=== PATIENT | female | born 2000 | race Caucasian/White ===

== ENCOUNTER 2021-03-30 15:25 | Emergency (ER) | payer OTHER ==
[~2021-03-30 15:25] MED LIST: LEVETIRACETAM500 MG PO; PHENERGAN25 M1 PO; ZANTAC150 MG PO; ZONEGRAN100 MG PO
[2021-03-30 16:16] LABS: BASOPHIL 0.2 % (0-2); EOSINOPHIL 0.2 % (0-5); LYMPHOCYTE 13.2 % (15-48); MCH 29.8 pg (25.0-31.0); MCHC 34.2 g/dL (32.0-36.0); MCV 87.2 fL (78.0-100.0); MONOCYTE 5.6 % (0-12); MPV 9.3 fL (6.0-9.5); NEUTROPHIL 80.4 % (41-80); NRBC 0; PLT 261 K/uL (150-400); RBC 4.36 M/uL (4.20-5.40); RDW 12.6 % (11.5-14.0); WBC 14.6 K/uL (4.0-10.5)
[2021-03-30 16:37] LABS: BUN/CREAT RATIO (CALC) 8.9 RATIO; CREATININE 0.56 mg/dL (0.51-0.95); POTASSIUM 3.5 mmol/L (3.5-5.1)
[2021-03-30 17:30] LABS: BILIRUBIN NEGATIVE (NEGATIVE); BLOOD NEGATIVE Ery/uL (NEGATIVE); CLARITY CLEAR (CLEAR); COLOR YELLOW (YELLOW); GLUCOSE (U) NORMAL (NORMAL); LEUKOCYTES 1+ Leu/uL (NEGATIVE); NITRITE NEGATIVE (NEGATIVE); PROTEIN 1+ mg/dL (NEGATIVE); SPECIFIC GRAVITY 1.015 (1.001-1.030); UROBILINOGEN 0.2 mg/dL (0.2-1.0); pH 8.5 (5.0-9.0)
[2021-03-30 17:35] LABS: AMPHETAMINES POSITIVE (NEGATIVE); BARBITURATES NEGATIVE (NEGATIVE); ECSTASY (MDMA) NEGATIVE (NEGATIVE); MARIJUANA (THC) NEGATIVE (NEGATIVE); METHADONE NEGATIVE (NEGATIVE); OPIATES NEGATIVE (NEGATIVE)
[2021-03-30 17:36] LABS: OXYCODONE NEGATIVE (NEGATIVE)
[2021-03-30 18:13] LABS: BACTERIA TRACE
[2021-03-30] MEDS ORDERED: LEVETIRACETAM500 MG PO (18:15)
== END 2021-03-30 18:35 | disposition home or self-care (01) ==
LOC: FER 15:25
PROVIDERS: Nurse Practitioner Family
DX: G40.409 Other generalized epilepsy and epileptic syndromes, not intractable, without status epilepticus (principal); Z79.899 Other long term (current) drug therapy
CPT/HCPCS: 36415; 80048; 80305; 81001; 85025; 93005; J1953

== ENCOUNTER 2021-04-04 06:54 | Emergency (ER) | payer OTHER ==
[2021-04-04] MEDS ORDERED: KEFLEX250 MG PO (08:04)
[2021-04-04] MEDS ORDERED: BACTROBAN NASAL1 GM TOP (08:04)
== END 2021-04-04 08:14 | disposition home or self-care (01) ==
LOC: FER 06:54
DX: S61.412A Laceration without foreign body of left hand, initial encounter (principal); S61.512A Laceration without foreign body of left wrist, initial encounter; L03.114 Cellulitis of left upper limb; F17.210 Nicotine dependence, cigarettes, uncomplicated; W17.89XA Other fall from one level to another, initial encounter; Y92.009 Unspecified place in unspecified non-institutional (private) residence as the place of occurrence of the external cause; Z88.8 Allergy status to other drugs, medicaments and biological substances

== ENCOUNTER 2021-04-10 23:06 | Emergency (ER) | payer OTHER ==
[~2021-04-10 23:06] MED LIST changes: +BACTROBAN NASAL1 GM TOP; +KEFLEX250 MG PO
[2021-04-11 00:43] LABS: BASOPHIL 0.2 % (0-2); EOSINOPHIL 0.4 % (0-5); HCT 40.9 % (37.0-47.0); HGB 13.2 g/dl (12.5-16.0); LYMPHOCYTE 11.8 % (15-48); MCH 29.2 pg (25.0-31.0); MCHC 32.3 g/dL (32.0-36.0); MCV 90.5 fL (78.0-100.0); MONOCYTE 9.1 % (0-12); MPV 9.7 fL (6.0-9.5); NRBC 0; RBC 4.52 M/uL (4.20-5.40); WBC 12.9 K/uL (4.0-10.5)
[2021-04-11 01:04] LABS: LACTIC ACID 0.9 mmol/L (0.4-1.9)
[2021-04-11 01:06] LABS: PLT 172 K/uL (150-400)
[2021-04-11 01:14] LABS: ALBUMIN 3.6 g/dL (3.4-5.0); BILIRUBIN - TOTAL 0.4 mg/dL (0.2-1.0); BUN/CREAT RATIO (CALC) 16.9 RATIO; CREATININE 0.59 mg/dL (0.51-0.95); GLOBULIN (CALCULATION) 4.4 g/dL; POTASSIUM 3.5 mmol/L (3.5-5.1)
[2021-04-11 02:13] LABS: BILIRUBIN 1+ mg/dL (NEGATIVE); BLOOD 3+ Ery/uL (NEGATIVE); CLARITY CLOUDY (CLEAR); COLOR YELLOW (YELLOW); GLUCOSE (U) NORMAL (NORMAL); LEUKOCYTES TRACE Leu/uL (NEGATIVE); NITRITE NEGATIVE (NEGATIVE); PROTEIN 2+ mg/dL (NEGATIVE); SPECIFIC GRAVITY >=1.030 (1.001-1.030); pH 5.5 (5.0-9.0)
[2021-04-11 02:18] LABS: AMPHETAMINES POSITIVE (NEGATIVE); BARBITURATES NEGATIVE (NEGATIVE); ECSTASY (MDMA) POSITIVE (NEGATIVE); MARIJUANA (THC) NEGATIVE (NEGATIVE); METHADONE NEGATIVE (NEGATIVE); OPIATES NEGATIVE (NEGATIVE); OXYCODONE NEGATIVE (NEGATIVE)
[2021-04-11 02:21] LABS: AMORPHOUS URATES CRYSTALS MODERATE; BACTERIA 1+; HCG (URINE) SCREEN NEGATIVE (NEGATIVE); URINARY RBC RARE
== END 2021-04-11 08:39 | disposition home or self-care (01) ==
LOC: FER 23:06
PROVIDERS: Internal Medicine
DX: R56.9 Unspecified convulsions (principal); F19.10 Other psychoactive substance abuse, uncomplicated; F17.200 Nicotine dependence, unspecified, uncomplicated
CPT/HCPCS: 36415; 80053; 80305; 81001; 83605; 83690; 84703; 85025; 93005; J7030

== ENCOUNTER 2021-09-01 19:54 | Inpatient (IN) | payer OTHER ==
[~2021-09-01] VITALS: Ht 167.6 cm; Wt 106.6 kg
[2021-09-01 21:38] LABS: BASOPHIL 0.2 % (0-2); EOSINOPHIL 0.5 % (0-5); HCT 39.3 % (37.0-47.0); HGB 13.1 g/dl (12.5-16.0); LYMPHOCYTE 10.4 % (15-48); MCH 29.6 pg (25.0-31.0); MCHC 33.3 g/dL (32.0-36.0); MCV 88.9 fL (78.0-100.0); MONOCYTE 9.8 % (0-12); NEUTROPHIL 78.7 % (41-80); NRBC 0; PLT 299 K/uL (150-400); RBC 4.42 M/uL (4.20-5.40); RDW 12.7 % (11.5-14.0); WBC 21.3 K/uL (4.0-10.5)
[2021-09-01 22:02] LABS: LACTIC ACID 0.9 mmol/L (0.4-1.9)
[2021-09-01 22:04] LABS: ALBUMIN 3.5 g/dL (3.4-5.0); BILIRUBIN - TOTAL 0.3 mg/dL (0.2-1.0); BUN/CREAT RATIO (CALC) 18.8 RATIO; CREATININE 0.64 mg/dL (0.51-0.95); GLOBULIN (CALCULATION) 4.2 g/dL; POTASSIUM 3.9 mmol/L (3.5-5.1); TOTAL PROTEIN 7.7 g/dL (6.4-8.2)
[2021-09-01 23:06] LABS: BILIRUBIN NEGATIVE (NEGATIVE); BLOOD 3+ Ery/uL (NEGATIVE); CLARITY CLOUDY (CLEAR); COLOR BROWN (YELLOW); GLUCOSE (U) NORMAL (NORMAL); LEUKOCYTES 2+ Leu/uL (NEGATIVE); NITRITE POSITIVE (NEGATIVE); PROTEIN 2+ mg/dL (NEGATIVE); SPECIFIC GRAVITY 1.025 (1.001-1.030)
[2021-09-01 23:24] LABS: BACTERIA 3+; URINARY RBC TNTC; URINARY WBC TNTC
[2021-09-02 07:25] LABS: BASOPHIL 0.1 % (0-2); EOSINOPHIL 0.2 % (0-5); HCT 35.7 % (37.0-47.0); LYMPHOCYTE 8.8 % (15-48); MCH 30.2 pg (25.0-31.0); MCHC 33.6 g/dL (32.0-36.0); MCV 89.7 fL (78.0-100.0); MONOCYTE 12.1 % (0-12); MPV 9.3 fL (6.0-9.5); NEUTROPHIL 78.4 % (41-80); NRBC 0; PLT 236 K/uL (150-400); RBC 3.98 M/uL (4.20-5.40); RDW 12.9 % (11.5-14.0); WBC 20.3 K/uL (4.0-10.5)
[2021-09-02 07:55] LABS: BUN/CREAT RATIO (CALC) 14.5 RATIO; CREATININE 0.62 mg/dL (0.51-0.95); POTASSIUM 3.5 mmol/L (3.5-5.1)
[2021-09-03 06:48] LABS: BASOPHIL 0.2 % (0-2); EOSINOPHIL 1.5 % (0-5); HCT 36.2 % (37.0-47.0); HGB 11.9 g/dl (12.5-16.0); LYMPHOCYTE 23.4 % (15-48); MCH 29.8 pg (25.0-31.0); MCHC 32.9 g/dL (32.0-36.0); MCV 90.7 fL (78.0-100.0); MONOCYTE 10.5 % (0-12); MPV 9.3 fL (6.0-9.5); NEUTROPHIL 63.9 % (41-80); NRBC 0; PLT 253 K/uL (150-400); RBC 3.99 M/uL (4.20-5.40); RDW 12.8 % (11.5-14.0); WBC 12.8 K/uL (4.0-10.5)
[2021-09-03 07:25] LABS: BUN/CREAT RATIO (CALC) 10.3 RATIO; CREATININE 0.58 mg/dL (0.51-0.95); POTASSIUM 4.3 mmol/L (3.5-5.1)
[2021-09-03] MEDS ORDERED: NORCO 5-325 TA1 EACH PO (16:15)
[2021-09-03] MEDS ORDERED: LEVAQUIN750 MG PO (16:15)
== END 2021-09-03 17:52 | disposition home or self-care (01) | DRG 690 ==
LOC: FER 19:54 → FMS 09-02 00:04
PROVIDERS: Allergy & Immunology; Emergency Medicine; Internal Medicine; ADMIT Allergy & Immunology Allergy
DX: N12 Tubulo-interstitial nephritis, not specified as acute or chronic (principal); N30.00 Acute cystitis without hematuria; Z20.822 Contact with and (suspected) exposure to COVID-19; G40.909 Epilepsy, unspecified, not intractable, without status epilepticus; F17.210 Nicotine dependence, cigarettes, uncomplicated; Z82.49 Family history of ischemic heart disease and other diseases of the circulatory system; Z80.49 Family history of malignant neoplasm of other genital organs; Z90.89 Acquired absence of other organs
CPT/HCPCS: 36415; 80048; 80053; 81001; 83605; 85025; 87040; 87088; 87186; 94010; J0696; J1170; J1650; J7030; Q9967; U0002